=== PATIENT | male | born 1940 | race Two or more races ===

== ENCOUNTER → 2017-01-06 | Outpatient (CLI) | payer MEDICARE, OTHER | END | disposition home or self-care (01) | LOC: Rad HDHVI 15:12 | PROVIDERS: ATTEND Internal Medicine Cardiovascular Disease | DX: I11.0 Hypertensive heart disease with heart failure (principal); I50.9 Heart failure, unspecified | CPT/HCPCS: 93306 ==

== ENCOUNTER → 2017-02-03 | Outpatient (CLI) | payer MEDICARE, OTHER ==
[~2017-02-03] VITALS: Ht 180.3 cm; Wt 127.0 kg
[~2017-02-03] MED LIST: DIPYRIDAMOLE (5MG/ML) 10 ML VIAL IV ONE; DIPYRIDAMOLE 60 MG in D5W 5% 50 ML IV SCH
[2017-02-03 16:18] LABS: Basophils # (auto) 0.1 uL; Basophils % (auto) 0.6 % (0.0-2.0); Eosinophils # (auto) 0.3 uL; Eosinophils % (auto) 3.2 % (0.0-7.0); Hematocrit 42.3 % (41.0-53.0); Lymphocytes # (auto) 2.7 uL; Lymphocytes % (auto) 30.3 % (10.0-50.0); Mean Corpuscular Hemoglobin 31.5 pg (28.0-32.0); Mean Corpuscular Hgb Conc. 33.2 g/dL (32.0-36.0); Mean Corpuscular Volume 94.9 fL (80.0-100.0); Monocytes # (auto) 0.7 uL; Monocytes % (auto) 8.4 % (0.0-12.0); Neutrophils # (auto) 5.1 uL; Neutrophils % (auto) 57.5 % (37.0-80.0); Nucleated Red Blood Cells % 0.1 %; Platelet Count (auto) 128 10^3/uL (140-450); Red Cell Distribution Width 13.8 % (11.8-14.3); White Blood Cell 8.9 10^3/uL (4.4-10.8)
[2017-02-03 16:23] LABS: Urine Bilirubin Negative (Negative); Urine Blood Negative /uL (Negative); Urine Color Yellow (Yellow); Urine Glucose Normal (Normal); Urine Ketone Negative (Negative); Urine Nitrite Negative (Negative); Urine Urobilinogen Normal (Negative)
[2017-02-03 16:26] LABS: Albumin 3.6 g/dL (3.4-5.0); BUN/Creatinine Ratio 19.7; Bilirubin, Direct 0.3 mg/dL (0-0.2); Bilirubin, Total 0.6 mg/dL (0.2-1.0); Calcium 9.6 mg/dL (8.5-10.1); Potassium 4.6 mmol/L (3.5-5.1); Total Protein 7.7 g/dL (6.4-8.2)
[2017-02-03 16:28] LABS: B-Type Natriuretic Peptide 90.42 pg/mL (0-100)
[2017-02-03 16:33] LABS: Temperature: 22.2 C (20.0-25.0)
== END | disposition home or self-care (01) ==
LOC: Rad HDHVI 10:50
PROVIDERS: ATTEND Internal Medicine Cardiovascular Disease
DX: I10 Essential (primary) hypertension (principal); E78.00 Pure hypercholesterolemia, unspecified; K74.1 Hepatic sclerosis; E11.9 Type 2 diabetes mellitus without complications; R97.20 Elevated prostate specific antigen [PSA]; R53.81 Other malaise; E03.9 Hypothyroidism, unspecified; D64.9 Anemia, unspecified; E55.9 Vitamin D deficiency, unspecified; N39.0 Urinary tract infection, site not specified; J44.9 Chronic obstructive pulmonary disease, unspecified; E50.9 Vitamin A deficiency, unspecified; R06.02 Shortness of breath
CPT/HCPCS: 36415; 78452; 80048; 80061; 80076; 81003; 82306; 83036; 83880; 84153; 84403; 84443; 85025; 93005; 96374; 96375; A9500; J1245